=== PATIENT | female | born 1980 | race Two or more races ===

== ENCOUNTER 2018-12-14 11:29 | Emergency (ER) | payer MEDICAID ==
[~2018-12-14] VITALS: Ht 152.4 cm; Wt 69.3 kg
[~2018-12-14 11:29] MED LIST: ACET-2812 PO
[2018-12-14 11:34] VITALS: BP 134/87
[2018-12-14] MEDS ORDERED: PENI500T2 PO (12:32)
[2018-12-14] MEDS ORDERED: ACET-3067 PO (12:32)
== END 2018-12-14 12:41 | disposition home or self-care (01) ==
LOC: ER 11:30
DX: K02.9 Dental caries, unspecified (principal); Z88.8 Allergy status to other drugs, medicaments and biological substances; Z79.899 Other long term (current) drug therapy
CPT/HCPCS: 99283

== ENCOUNTER 2019-07-26 19:12 | Emergency (ER) | payer MEDICAID ==
[~2019-07-26] VITALS: Ht 152.4 cm; Wt 67.3 kg
[~2019-07-26 19:12] MED LIST changes: -ACET-2812 PO; +ACET-3055 PO; +AMOX-422 PO
[2019-07-26 20:18] VITALS: BP 129/94
== END 2019-07-26 20:15 | disposition home or self-care (01) ==
LOC: ER 19:13
DX: K11.20 Sialoadenitis, unspecified (principal); Z91.018 Allergy to other foods; Z79.2 Long term (current) use of antibiotics; Z79.899 Other long term (current) drug therapy
CPT/HCPCS: 99281

== ENCOUNTER 2023-07-21 18:59 | Emergency (ER) | payer MEDICAID ==
[~2023-07-21] VITALS: Ht 152.4 cm; Wt 70.0 kg
[~2023-07-21 18:59] MED LIST changes: -ACET-3055 PO; +ACET-3414 PO; -AMOX-422 PO
[2023-07-21 19:01] VITALS: BP 154/85; PULSE 89; RESP 16; TEMP 98.6; O2SAT 98
[2023-07-21] MEDS ORDERED: DOXY-11 PO (19:33)
== END 2023-07-21 19:43 | disposition home or self-care (01) ==
LOC: ER 18:59
DX: K04.7 Periapical abscess without sinus (principal); K08.89 Other specified disorders of teeth and supporting structures; Z91.018 Allergy to other foods; Z79.1 Long term (current) use of non-steroidal anti-inflammatories (NSAID)
CPT/HCPCS: 99283

== ENCOUNTER 2023-10-16 19:16 | Emergency (ER) | payer MEDICAID ==
[~2023-10-16] VITALS: Ht 152.4 cm; Wt 71.4 kg
[2023-10-16 19:17] VITALS: BP 146/95
[2023-10-16] MEDS ORDERED: SULF1TAB49 PO (21:53)
[2023-10-16] MEDS ORDERED: HYDR-3965 PO (21:53)
[2023-10-16] MEDS: LIDOcaine/epinephrine/tetracaine TOPICAL sol 3 ML syringe TOP ONE (21:56)
[2023-10-16 23:23] VITALS: PULSE 78; RESP 18; TEMP 98; O2SAT 100
== END 2023-10-16 23:27 | disposition home or self-care (01) ==
LOC: ER 19:16
DX: L02.31 Cutaneous abscess of buttock (principal); Z91.018 Allergy to other foods; Z79.899 Other long term (current) drug therapy; Z79.1 Long term (current) use of non-steroidal anti-inflammatories (NSAID)
CPT/HCPCS: 10060; 99283; A6266; J3490; J7030; A6449

== ENCOUNTER 2023-10-18 12:13 | Emergency (ER) | payer MEDICAID ==
[~2023-10-18] VITALS: Ht 152.4 cm; Wt 61.5 kg
[~2023-10-18 12:13] MED LIST changes: +HYDR-3965 PO; +SULF1TAB49 PO
[2023-10-18 12:29] VITALS: BP 127/88; PULSE 78; RESP 16; TEMP 98.8; O2SAT 97
== END 2023-10-18 14:44 | disposition home or self-care (01) ==
LOC: ER 12:14
DX: Z48.00 Encounter for change or removal of nonsurgical wound dressing (principal); Z91.018 Allergy to other foods
CPT/HCPCS: 99281; A6258

== ENCOUNTER 2023-11-16 20:48 | Emergency (ER) | payer MEDICAID ==
[~2023-11-16] VITALS: Ht 152.4 cm; Wt 71.0 kg
[~2023-11-16 20:48] MED LIST changes: -SULF1TAB49 PO
[2023-11-16 20:51] VITALS: BP 147/89; PULSE 73; RESP 16; TEMP 98.8; O2SAT 97
== END 2023-11-16 23:39 | disposition left against medical advice (07) ==
LOC: ER 20:49
DX: K04.7 Periapical abscess without sinus (principal); Z53.21 Procedure and treatment not carried out due to patient leaving prior to being seen by health care provider